=== PATIENT | female | born 1935 | race Caucasian/White ===

== ENCOUNTER 2018-06-28 14:13 | Emergency (ER) | payer OTHER ==
[~2018-06-28] VITALS: Ht 172.7 cm; Wt 74.4 kg
[~2018-06-28 14:13] MED LIST: ACETAMINOPHEN325 M1 PO; ACTONEL30 MG PO; ADULT LOW DOSE81 MG PO; AFLURIA 2045 MCG/0.4; ASTELIN30 ML NS; BYSTOLIC 5 MG5 M1 PO; CALTRATE-600 W1 EACH PO; CARDIZEM CD240 MG PO; CENTRUM SILVER1 EAC4 PO; CIPROFLOXACIN250 M2 PO; CIPROFLOXACIN500 M1 PO; CLOTRIMAZOLE10 MG PO; CODEINE 10 MG-473 ML PO; COLACE100 MG PO; CORICIDIN COLD1 EACH; COUMADIN 5 MG TA5 M1 PO; COZAAR 25 MG TA25 M1 PO; DILTIAZEM ER240 M1 PO; DIOVAN40 MG PO; ELIDEL CREAM 1%30 G1 TOP; ELIDEL100 GM TP; FIBER TABS625 MG PO; FIBER500 MG PO; FLAGYL500 MG PO; FLONASE 0.05%50 MCG NASAL; LANOXIN 0.120.125 M1 PO; LASIX 20 MG TAB20 MG PO; LOVASTAT40 PO; LUMIGAN2.5 M1 OP; MUCINEX DM TABL1 TA1 PO; MUCINEX TA600 MG/TA2 PO; MUCINEX600 MG PO; NAPHCON-A EYE D15 ML OP; NORCO 5-325 TA1 EACH PO; NORVASC5 MG PO; OMEPRAZOLE20 M2 PO; PNEUMOVAX25 MCG/0.5; PRESERVISION T1 EACH PO; PROAIR HFA8.5 GM INH; PROVENTIL HFA6.7 G1 INH; REFRESH TEARS15 ML OP; SMOOTHLAX17 GM PO; TAMIFLU PO
[2018-06-28 14:53] LABS: HEMATOCRIT 41.9 % (37.0-47.0); HEMOGLOBIN 13.9 gm/dL (12.0-15.0); MCH 31.2 pg (26.0-34.0); MCHC 33.1 g/dL (28.0-37.0); MCV 94.1 fL (80.0-100.0); RBC 4.45 mil/uL (4.20-5.00); RDW 13.4 % (10.5-14.5); WBC 6.6 thou/uL (4.0-11.0)
[2018-06-28 15:00] LABS: ANION GAP 7 mmol/L (7-16); BUN 19 mg/dL (7-18); CALCIUM 9.7 mg/dL (8.5-10.1); CHLORIDE 101 mmol/L (98-107); CO2 29 mmol/L (21-32); CREATININE 1.2 mg/dL (0.6-1.0); GLUCOSE 97 mg/dL (74-106); POTASSIUM 4.1 mmol/L (3.5-5.1); SODIUM 137 mmol/L (136-145)
[2018-06-28 15:08] LABS: INR 2.5; PROTIME 26.2 Seconds (9.3-11.4)
[2018-06-28 15:10] LABS: TROPONIN-I <0.06 ng/mL (<0.06)
[2018-06-28] MEDS ORDERED: ANTIVERT25 MG PO (17:19)
[2018-06-28 18:00] VITALS: BP 123/69
--- NOTE | 2018-06-29 13:39 | EKG ---
[place] [address] [address] [address] ELECTROCARDIOGRAM REPORT Name: SUMMER PURCELL Room #: [facility]#: [id number] ������������������ Admission: 06/28/18 ������������������ Attend Phys: Discharge: 06/28/18 ������������������ Date of : 37 Report #: [id number] ����������������������������������������������������������������� [id number] THIS REPORT FOR: //name// [facility] ED Test Date: 2018-06-28 Test Time: 15:21:05 Pat Name: SUMMER PURCELL Department: Room: Gender: F [employer]: [id number] : [id number] Requested By: Dane Mackenzie Order Number: [id number] MD: Andry Jain Measurements Intervals [place] Rate: 64 P: 0 NM: 104 QRS: -75 QRSD: 172 T: 109 QT: 457 QTc: 472 Interpretive Statements Ventricular-paced rhythm No further analysis attempted due to paced rhythm Baseline wander in lead(s) V3 Compared to ECG 07/24/2015 22:57:04 No significant change was found Electronically Signed On 06-29-2018 13:38:51 CDT by Andry Jain [email or web address] ��������������������������������������������� <ELECTRONICALLY SIGNED> ���������������������������������������� By: Andry Jain MD, [facility] ��������������������������������������������� 06/29/18 1338 1521 1521 Andry Jain MD, [facility] /EPI
== END 2018-06-28 18:00 | disposition home or self-care (01) ==
LOC: ER 14:13
PROVIDERS: Emergency Medicine
DX: H81.391 Other peripheral vertigo, right ear (principal); I48.91 Unspecified atrial fibrillation; E78.5 Hyperlipidemia, unspecified; K21.9 Gastro-esophageal reflux disease without esophagitis; M81.0 Age-related osteoporosis without current pathological fracture; I12.9 Hypertensive chronic kidney disease with stage 1 through stage 4 chronic kidney disease, or unspecified chronic kidney disease; N18.3 Chronic kidney disease, stage 3 (moderate); H35.30 Unspecified macular degeneration; I25.10 Atherosclerotic heart disease of native coronary artery without angina pectoris; L40.9 Psoriasis, unspecified; Z90.49 Acquired absence of other specified parts of digestive tract; Z95.0 Presence of cardiac pacemaker; Z88.8 Allergy status to other drugs, medicaments and biological substances; Z88.0 Allergy status to penicillin; Z88.2 Allergy status to sulfonamides; Z91.048 Other nonmedicinal substance allergy status; Z88.6 Allergy status to analgesic agent; Z85.43 Personal history of malignant neoplasm of ovary; Z96.659 Presence of unspecified artificial knee joint

== ENCOUNTER 2019-04-29 11:38 | Emergency (ER) | payer OTHER ==
[~2019-04-29] VITALS: Ht 170.2 cm; Wt 77.1 kg
[~2019-04-29 11:38] MED LIST changes: +ANTIVERT25 MG PO
[2019-04-29 11:39] VITALS: BP 171/93
[2019-04-29] MEDS ORDERED: DOXYCYCLINE 10100 MG PO (12:08)
[2019-04-29] MEDS ORDERED: DILTIAZEM 24HR240 M1 PO (13:15)
[2019-04-29] MEDS ORDERED: BYSTOLIC10 MG PO (13:16)
[2019-04-29] MEDS ORDERED: ACETAMINOPHEN500 M1 PO (13:17)
[2019-04-29] MEDS ORDERED: TRIDERM454 GM TOP (13:22)
== END 2019-04-29 12:36 | disposition home or self-care (01) ==
LOC: ER 11:38
DX: L03.115 Cellulitis of right lower limb (principal); I12.9 Hypertensive chronic kidney disease with stage 1 through stage 4 chronic kidney disease, or unspecified chronic kidney disease; N18.3 Chronic kidney disease, stage 3 (moderate); I25.10 Atherosclerotic heart disease of native coronary artery without angina pectoris; E78.5 Hyperlipidemia, unspecified; K21.9 Gastro-esophageal reflux disease without esophagitis; M85.80 Other specified disorders of bone density and structure, unspecified site; M81.0 Age-related osteoporosis without current pathological fracture; Z95.0 Presence of cardiac pacemaker

== ENCOUNTER 2020-10-06 18:58 | Inpatient (IN) | payer OTHER ==
[~2020-10-06] VITALS: Ht 170.2 cm; Wt 77.6 kg
[~2020-10-06 18:58] MED LIST changes: +ACETAMINOPHEN500 M1 PO; +BYSTOLIC10 MG PO; +DILTIAZEM 24HR240 M1 PO; +DOXYCYCLINE 10100 MG PO; +TRIDERM454 GM TOP
[2020-10-06 19:11] VITALS: BP 176/97
[2020-10-06 19:49] LABS: CALCIUM 8.9 mg/dL (8.5-10.1); POTASSIUM 4.6 mmol/L (3.5-5.1)
[2020-10-06 19:50] LABS: ABSOLUTE NEUTROPHILS 6.9 thou/uL (1.4-8.2); BASOPHILS 0.2 % (0.0-2.0); EOSINOPHILS 0.1 % (0.0-3.0); HEMATOCRIT 39.6 % (37.0-47.0); HEMOGLOBIN 13.2 gm/dL (12.0-15.0); LYMPHOCYTES 14.3 % (24.0-44.0); MCH 31.9 pg (26.0-34.0); MCHC 33.2 g/dL (28.0-37.0); MONOCYTES 9.3 % (1.0-8.0); PLATELET COUNT 202 thou/uL (150-400); POLYS 76.1 % (36.0-66.0); RBC 4.12 mil/uL (4.20-5.00); RDW 13.3 % (10.5-14.5); WBC 9.1 thou/uL (4.0-11.0)
[2020-10-06 19:55] LABS: ALBUMIN 3.8 g/dL (3.4-5.0); TOTAL BILIRUBIN 0.6 mg/dL (0.2-1.0); TOTAL PROTEIN 7.9 g/dL (6.4-8.2)
[2020-10-06] MEDS ORDERED: OMEPRAZOLE 20 M20 M1 PO (21:44)
[2020-10-06] MEDS ORDERED: WARFARIN SODIUM5 MG PO (21:47)
[2020-10-06] MEDS ORDERED: CLARITIN10 M3 PO (21:53)
[2020-10-06] MEDS ORDERED: PRESERVISION T1 EACH PO (21:56)
[2020-10-06 23:36] VITALS: BP 133/72
[2020-10-06 23:51] LABS: INR 1.98; PROTIME 20.9 Seconds (10.5-12.1)
[2020-10-07 00:24] VITALS: BP 138/67
--- NOTE | 2020-10-07 02:54 | NUR ---
Admission history and assessments completed. Care plan initated. High fall risks, fall precautions in place.
[2020-10-07 04:19] VITALS: BP 129/61
[2020-10-07 06:07] LABS: HEMATOCRIT 37.5 % (37.0-47.0); HEMOGLOBIN 12.3 gm/dL (12.0-15.0); MCH 31.9 pg (26.0-34.0); MCHC 32.9 g/dL (28.0-37.0); MCV 97.1 fL (80.0-100.0); RBC 3.86 mil/uL (4.20-5.00); RDW 13.5 % (10.5-14.5); WBC 8.6 thou/uL (4.0-11.0)
[2020-10-07 06:23] LABS: CALCIUM 8.9 mg/dL (8.5-10.1); CREATININE 1.1 mg/dL (0.6-1.0)
[2020-10-07 06:27] LABS: POTASSIUM 3.6 mmol/L (3.5-5.1)
[2020-10-07 06:30] LABS: ALBUMIN 3.5 g/dL (3.4-5.0); DIRECT BILIRUBIN 0.2 mg/dL (<0.1-0.2); TOTAL BILIRUBIN 0.5 mg/dL (0.2-1.0); TOTAL PROTEIN 7.3 g/dL (6.4-8.2)
[2020-10-07 07:37] VITALS: BP 141/67
--- NOTE | 2020-10-07 10:57 | NUR ---
INITIAL ASSESSMENT: Received consult. SW reviewed chart and spoke with nursing and attending physician. Pt was admitted from home due to pneumonia. Pt had negative COVID test on 10/06. SW met with pt at bedside. Introduced role of SW. Pt is alert/orientated x 4. Pt reports she lives at her dtr's home in the [id number]. 1 step to enter. No steps inside. Prior to admission, pt was independent with ADLs. Pt does have a cane to use if needed. No hx of services or post-acute placement. Pt's PCP is Dr. Nabor Lui. Plan is for pt to discharge home when medically stable. Pt's family will be able to provide transportation home. No discharge needs identified at this time, but SW is available to assist should needs arise.
[2020-10-07 16:45] VITALS: BP 139/75
--- NOTE | 2020-10-07 17:17 | NUR ---
CARE TAKEN OVER THIS AM, PT ALERT AND ORIENTED X4, DENIES ANY CHEST PAIN, NAUSEA AND VOMITTING. PT ON ROOM AIR, NO SIGNS OF DISTRESS. UP TO BATHROOM STAND BY WITH CANE. FALL PRECUATIONS IN PLACE. PT FAMILY VISITING, UPDATED ABOUT PT CARE.
[2020-10-07 20:13] VITALS: BP 145/75
--- NOTE | 2020-10-07 22:52 | NUR ---
PROGRESS PT A/O X4, VSS. UP WITH SBA AND CANE TO [facility] GAIT STEADY. ON ROOM AIR LUNGS DIMINISHED, VERY LITTLE COUGHING NOTED THIS SHIFT, PT DENIES SOB. ABDOMEN SOFT WITH ACTIVE BS. VOIDING QS IN [facility] HAS STRESS INCONTINENCE SO SHE WEARS PERIPADS. IV ANTIBIOTICS ADMINISTERED ORDERED IV TO RAC SALINE LOCKED AND FLUSHES WITHOUT DIFFICULTY. PT HOPES TO DISCHARGE HOME IN AM.
[2020-10-08 04:33] VITALS: BP 127/69
[2020-10-08 05:16] LABS: INR 2.24; PROTIME 23.5 Seconds (10.5-12.1)
[2020-10-08 07:21] VITALS: BP 144/84
[2020-10-08] MEDS ORDERED: PROAIR HFA8.5 GM INH (13:29)
[2020-10-08] MEDS ORDERED: BENZONATATE100 MG PO (13:29)
[2020-10-08] MEDS ORDERED: CEFUROXIME500 MG PO (13:29)
[2020-10-08] MEDS ORDERED: DOXYCYCLINE HY100 M3 PO (13:29)
[2020-10-08] MEDS ORDERED: PREDNISONE 20 M20 MG PO (13:29)
[2020-10-08 15:27] VITALS: BP 144/84
== END 2020-10-08 17:35 | disposition home or self-care (01) | DRG 194 ==
LOC: ER 18:58 → 3W 21:46 → EROBS 21:46 → 3W 23:47
PROVIDERS: Emergency Medicine; Nurse Practitioner Family; ADMIT Hospitalist; ATTEND Hospitalist
DX: J18.9 Pneumonia, unspecified organism (principal); E87.1 Hypo-osmolality and hyponatremia; I48.91 Unspecified atrial fibrillation; R74.01 Elevation of levels of liver transaminase levels; Z20.822 Contact with and (suspected) exposure to COVID-19; E78.5 Hyperlipidemia, unspecified; K21.9 Gastro-esophageal reflux disease without esophagitis; M81.0 Age-related osteoporosis without current pathological fracture; N18.30 Chronic kidney disease, stage 3 unspecified; M19.90 Unspecified osteoarthritis, unspecified site; J45.909 Unspecified asthma, uncomplicated; L98.9 Disorder of the skin and subcutaneous tissue, unspecified; I12.9 Hypertensive chronic kidney disease with stage 1 through stage 4 chronic kidney disease, or unspecified chronic kidney disease; I25.10 Atherosclerotic heart disease of native coronary artery without angina pectoris; Z96.659 Presence of unspecified artificial knee joint; Z79.01 Long term (current) use of anticoagulants; Z85.43 Personal history of malignant neoplasm of ovary; Z90.722 Acquired absence of ovaries, bilateral; Z95.0 Presence of cardiac pacemaker; Z98.42 Cataract extraction status, left eye; Z98.41 Cataract extraction status, right eye; Z87.81 Personal history of (healed) traumatic fracture; Z88.6 Allergy status to analgesic agent; Z88.0 Allergy status to penicillin; Z88.2 Allergy status to sulfonamides; Z88.8 Allergy status to other drugs, medicaments and biological substances
CPT/HCPCS: 10080